=== PATIENT | female | born 1940 | race Caucasian/White ===

== ENCOUNTER 2022-03-09 13:01 | Inpatient (IN) ==
[2022-03-09] MEDS ORDERED: Iopamidol - 370 500 ML MLS IVP ONE ×2 (13:32→13:34)
[2022-03-09 14:03] LABS: Basophils % 0.1 %; Hematocrit 40.4 % (35.3-44.9); Hemoglobin 12.8 g/dL (11.5-15.4); Immature Granulocytes % 0.6 % (0-4); Lymphocytes # 0.4 K/mcL (0.6-4.6); Lymphocytes % 2.5 %; Mean Corpuscular HGB Conc 31.7 g/dL (31.6-35.5); Mean Corpuscular Volume 97.8 fL (83.0-100.0); Monocytes # 0.8 K/mcL (0.0-1.3); Monocytes % 4.7 %; Neutrophils # 15.4 K/mcL (1.6-8.9); Platelet Count 475 K/mcL (140-400); Red Blood Count 4.13 M/mcL (3.82-4.97); Red Cell Distribution Width 12.1 % (11.5-14.5); Segmented Neutrophils % 92.1 %; White Blood Count 16.7 K/mcL (4.3-11.1)
[2022-03-09 14:40] LABS: Albumin 4.2 g/dL (3.5-5.7); Bilirubin,Direct 0.1 mg/dL (0.0-0.2); Bilirubin,Indirect 0.3 mg/dL (0.0-1.0); Bilirubin,Total 0.4 mg/dL (0.3-1.0); Calcium 11.5 mg/dL (8.6-10.3); Globulin 4.3 g/dL (2.4-3.5); Magnesium 2.1 mg/dL (1.6-2.6); Potassium 6.5 mEq/L (3.5-5.1); Total Protein 8.5 g/dL (6.4-8.9); Troponin I 0.04 ng/mL (< 0.04)
[2022-03-09] MEDS ORDERED: 0.9 % Sodium Chloride 1,000 ML IVC SCH ×2 (15:00→17:45)
[2022-03-09 15:04] LABS: VBG HCO3 15 mEq/L (21-27); VBG PCO2 33 mmHg (41-51); VBG PH 7.27 pH Units (7.32-7.42); VBG PO2 77 mmHg (25-50)
[2022-03-09 17:18] LABS: Calcium 10.9 mg/dL (8.6-10.3); Potassium 5.2 mEq/L (3.5-5.1)
[2022-03-09] MEDS ORDERED: *HR* Dextrose 50 % in Water (Syg) 50 ML SYRINGE IVP PRN (17:44)
[2022-03-09] MEDS ORDERED: Insulin Regular, Human 100 UNIT/ML IV PRN (17:44)
[2022-03-09] MEDS ORDERED: Naloxone 0.4 MG/ML INJ IVP PRN (17:44)
[2022-03-09] MEDS ORDERED: D5% in 0.45% NACL 1,000 ML IVC PRN (17:44)
[2022-03-09 17:57] LABS: Calcium 11.4 mg/dL (8.6-10.3); Potassium 4.6 mEq/L (3.5-5.1)
[2022-03-09] MEDS: D5% in 0.45% NACL w KCl 20 MEQ/1,000 ML MLS IVC PRN (19:03)
[2022-03-09 19:44] LABS: Calcium 11.3 mg/dL (8.6-10.3); Potassium 4.6 mEq/L (3.5-5.1)
[2022-03-09 22:01] LABS: Calcium 11.7 mg/dL (8.6-10.3); Potassium 5.1 mEq/L (3.5-5.1)
[2022-03-09] MEDS: 0.45 % Sodium Chloride w/KCl 20 MEQ/1,000 ML MLS IVC SCH (22:15)
[2022-03-09] MEDS: *HR* Heparin 5,000 UNIT/ML VIAL SQ SCH (22:37)
[2022-03-10] MEDS: 0.45 % Sodium Chloride w/KCl 20 MEQ/1,000 ML MLS IVC SCH (00:45)
[2022-03-10 04:34] LABS: Bacteria,Urine Few per hpf (None-Few); Bilirubin,Urine Negative (Negative); Blood,Urine Negative (Negative); Clarity,Urine Turbid (Clear); Color,Urine Light-Yellow (Yellow); Glucose,Urine (UA) >=1000 mg/dL (Normal); Ketones,Urine 40 mg/dL (Negative); Leukocyte Esterase,Urine Large (Negative); Nitrite,Urine Negative (Negative); PH,Urine 5.5 pH Units (5.0-8.0); Protein,Urine Trace mg/dL (Neg-Trace); Specific Gravity,Urine 1.028 (1.010-1.025); Squamous Epithelial Cell,Urine Few per hpf (None-Few); Urobilinogen,Urine Normal (Normal); WBC,Urine 50-100 per hpf (0-3)
[2022-03-10] MEDS: *HR* Heparin 5,000 UNIT/ML VIAL SQ SCH ×3 (04:40→21:23)
[2022-03-10 05:43] LABS: Calcium 10.9 mg/dL (8.6-10.3)
[2022-03-10 05:44] LABS: Potassium 5.2 mEq/L (3.5-5.1)
[2022-03-10] MEDS: D5% in 0.45% NACL w KCl 20 MEQ/1,000 ML MLS IVC PRN (05:56)
[2022-03-10 06:18] LABS: Estimated Average Glucose 280 mg/dl; Hemoglobin A1C 11.4 %
[2022-03-10 12:43] LABS: Basophils % 0.1 %; Eosinophils % 0.1 %; Hematocrit 37.3 % (35.3-44.9); Hemoglobin 12.3 g/dL (11.5-15.4); Immature Granulocytes % 0.3 % (0-4); Lymphocytes # 1.6 K/mcL (0.6-4.6); Lymphocytes % 10.6 %; Mean Corpuscular Hemoglobin 30.3 pg (28.0-33.3); Mean Corpuscular Volume 91.9 fL (83.0-100.0); Mean Platelet Volume 10.3 fL (9.4-12.4); Monocytes # 1.4 K/mcL (0.0-1.3); Monocytes % 9.3 %; Neutrophils # 11.8 K/mcL (1.6-8.9); Platelet Count 455 K/mcL (140-400); Red Blood Count 4.06 M/mcL (3.82-4.97); Red Cell Distribution Width 12.1 % (11.5-14.5); Segmented Neutrophils % 79.6 %; White Blood Count 14.8 K/mcL (4.3-11.1)
[2022-03-10 13:14] LABS: Calcium 10.8 mg/dL (8.6-10.3); Potassium 4.8 mEq/L (3.5-5.1); Troponin I 0.05 ng/mL (< 0.04)
[2022-03-10] MEDS ORDERED: 0.9 % Sodium Chloride 1,000 ML IV ONE (15:26)
[2022-03-10] MEDS ORDERED: DULAGLUTIDE 3 MG/0.5 ML SUBQ SCH (16:00)
[2022-03-10] MEDS ORDERED: D5% in Water 1,000 ML IVC PRN (16:09)
[2022-03-10] MEDS ORDERED: *HR* Dextrose 50 % in Water (Syg) 50 ML SYRINGE IVP PRN (16:09)
[2022-03-10] MEDS ORDERED: Dextrose Gel 15 GM/37.5 ML TUBE PO PRN ×2 (16:09)
[2022-03-10] MEDS: Insulin LISPRO 300 UNITS/3 ML VIAL SUBQ SCH (17:00)
[2022-03-10] MEDS ORDERED: Insulin DETEMIR 100 UNIT/ML X5UNITS SUBQ SCH ×2 (18:19→21:00)
[2022-03-10] MEDS: *HR* Metformin 500 MG TABLET PO SCH (19:52)
[2022-03-10 22:00] LABS: Potassium 4.7 mEq/L (3.5-5.1); Troponin I 0.03 ng/mL (< 0.04)
[2022-03-11] MEDS ORDERED: 0.9 % Sodium Chloride 1,000 ML ONE (03:08)
[2022-03-11] MEDS: *HR* Heparin 5,000 UNIT/ML VIAL SQ SCH ×3 (06:11→21:50)
[2022-03-11] MEDS: Insulin LISPRO 300 UNITS/3 ML VIAL SUBQ SCH ×3 (08:48→17:15)
[2022-03-11 09:01] LABS: Basophils % 0.1 %; Eosinophils % 0.4 %; Hematocrit 37.8 % (35.3-44.9); Hemoglobin 12.4 g/dL (11.5-15.4); Immature Granulocytes % 0.2 % (0-4); Lymphocytes # 1.4 K/mcL (0.6-4.6); Lymphocytes % 16.9 %; Mean Corpuscular HGB Conc 32.8 g/dL (31.6-35.5); Mean Corpuscular Hemoglobin 30.8 pg (28.0-33.3); Mean Corpuscular Volume 93.8 fL (83.0-100.0); Mean Platelet Volume 10.6 fL (9.4-12.4); Monocytes # 0.8 K/mcL (0.0-1.3); Monocytes % 9.6 %; Neutrophils # 6.2 K/mcL (1.6-8.9); Platelet Count 404 K/mcL (140-400); Red Blood Count 4.03 M/mcL (3.82-4.97); Red Cell Distribution Width 12.3 % (11.5-14.5); Segmented Neutrophils % 72.8 %; White Blood Count 8.5 K/mcL (4.3-11.1)
[2022-03-11 09:23] LABS: Calcium 9.7 mg/dL (8.6-10.3); Magnesium 1.6 mg/dL (1.6-2.6); Potassium 4.5 mEq/L (3.5-5.1)
[2022-03-11] MEDS: *HR* Metformin 500 MG TABLET PO SCH ×2 (09:51→17:09)
[2022-03-11] MEDS: Dapagliflozin Propanediol [Farxiga] 10 MG Tablet PO SCH (09:52)
[2022-03-11] MEDS: Insulin DETEMIR 100 UNIT/ML X5UNITS SUBQ SCH ×2 (11:58→20:14)
[2022-03-11] MEDS: cefTRIAXone 1,000 MG in 0.9 % Sodium Chloride 10 ML IVP SCH (14:39)
[2022-03-11] MEDS ORDERED: 0.9 % Sodium Chloride 1,000 ML IVC ONE (16:45)
[2022-03-12 02:37] LABS: Hematocrit 35.3 % (35.3-44.9); Hemoglobin 11.4 g/dL (11.5-15.4); Mean Corpuscular HGB Conc 32.3 g/dL (31.6-35.5); Mean Corpuscular Hemoglobin 30.2 pg (28.0-33.3); Mean Corpuscular Volume 93.4 fL (83.0-100.0); Mean Platelet Volume 10.3 fL (9.4-12.4); Platelet Count 369 K/mcL (140-400); Red Blood Count 3.78 M/mcL (3.82-4.97); Red Cell Distribution Width 12.3 % (11.5-14.5); White Blood Count 7.6 K/mcL (4.3-11.1)
[2022-03-12 03:03] LABS: Magnesium 1.6 mg/dL (1.6-2.6)
[2022-03-12] MEDS: *HR* Heparin 5,000 UNIT/ML VIAL SQ SCH ×4 (05:54→22:44)
[2022-03-12] MEDS: cefTRIAXone 1,000 MG in 0.9 % Sodium Chloride 10 ML IVP SCH (09:14)
[2022-03-12] MEDS: *HR* Metformin 500 MG TABLET PO SCH ×2 (09:15→17:25)
[2022-03-12] MEDS: Dapagliflozin Propanediol [Farxiga] 10 MG Tablet PO SCH (09:15)
[2022-03-12] MEDS: Insulin DETEMIR 100 UNIT/ML X5UNITS SUBQ SCH ×2 (09:17→20:29)
[2022-03-12] MEDS: Insulin LISPRO 300 UNITS/3 ML VIAL SUBQ SCH ×3 (09:17→17:26)
[2022-03-12] MEDS: Acetaminophen 325 MG TABLET PO PRN (16:07)
[2022-03-13 03:10] LABS: Hematocrit 35.2 % (35.3-44.9); Hemoglobin 11.4 g/dL (11.5-15.4); Mean Corpuscular HGB Conc 32.4 g/dL (31.6-35.5); Mean Corpuscular Hemoglobin 30.2 pg (28.0-33.3); Mean Corpuscular Volume 93.1 fL (83.0-100.0); Mean Platelet Volume 10.4 fL (9.4-12.4); Platelet Count 346 K/mcL (140-400); Red Blood Count 3.78 M/mcL (3.82-4.97); Red Cell Distribution Width 12.3 % (11.5-14.5); White Blood Count 8.3 K/mcL (4.3-11.1)
[2022-03-13 03:29] LABS: Calcium 8.9 mg/dL (8.6-10.3); Potassium 3.7 mEq/L (3.5-5.1)
[2022-03-13] MEDS: *HR* Heparin 5,000 UNIT/ML VIAL SQ SCH ×3 (05:02→21:51)
[2022-03-13] MEDS: 0.45 % Sodium Chloride w/KCl 20 MEQ/1,000 ML MLS IVC SCH ×6 (07:54→07:59)
[2022-03-13] MEDS: *HR* Metformin 500 MG TABLET PO SCH ×2 (08:54→15:21)
[2022-03-13] MEDS: cefTRIAXone 1,000 MG in 0.9 % Sodium Chloride 10 ML IVP SCH (08:54)
[2022-03-13] MEDS: Insulin LISPRO 300 UNITS/3 ML VIAL SUBQ SCH ×3 (09:10→21:51)
[2022-03-13] MEDS: Dapagliflozin Propanediol [Farxiga] 10 MG Tablet PO SCH (09:20)
[2022-03-13] MEDS: Insulin DETEMIR 100 UNIT/ML X5UNITS SUBQ SCH ×2 (09:28→21:51)
[2022-03-14] MEDS: Acetaminophen 325 MG TABLET PO PRN (03:15)
[2022-03-14] MEDS: *HR* Heparin 5,000 UNIT/ML VIAL SQ SCH ×3 (04:50→21:29)
[2022-03-14] MEDS: *HR* Metformin 500 MG TABLET PO SCH ×2 (08:37→16:30)
[2022-03-14] MEDS: cefTRIAXone 1,000 MG in 0.9 % Sodium Chloride 10 ML IVP SCH (08:37)
[2022-03-14] MEDS: Insulin DETEMIR 100 UNIT/ML X5UNITS SUBQ SCH ×2 (08:38→20:09)
[2022-03-14] MEDS: Insulin LISPRO 300 UNITS/3 ML VIAL SUBQ SCH ×3 (08:39→16:27)
[2022-03-14] MEDS: Dapagliflozin Propanediol [Farxiga] 10 MG Tablet PO SCH (08:43)
[2022-03-14 10:46] LABS: Hemoglobin 11.5 g/dL (11.5-15.4); Mean Corpuscular HGB Conc 32.9 g/dL (31.6-35.5); Mean Corpuscular Hemoglobin 30.7 pg (28.0-33.3); Mean Corpuscular Volume 93.6 fL (83.0-100.0); Mean Platelet Volume 11.3 fL (9.4-12.4); Platelet Count 339 K/mcL (140-400); Red Blood Count 3.74 M/mcL (3.82-4.97); Red Cell Distribution Width 12.5 % (11.5-14.5)
[2022-03-14 11:07] LABS: Potassium 4.3 mEq/L (3.5-5.1)
[2022-03-14] MEDS ORDERED: Colchicine 0.6 MG TABLET PO ONE ×2 (11:33→12:40)
[2022-03-15 03:16] LABS: Hematocrit 33.9 % (35.3-44.9); Hemoglobin 11.1 g/dL (11.5-15.4); Mean Corpuscular HGB Conc 32.7 g/dL (31.6-35.5); Mean Corpuscular Hemoglobin 30.7 pg (28.0-33.3); Mean Corpuscular Volume 93.6 fL (83.0-100.0); Mean Platelet Volume 11.3 fL (9.4-12.4); Platelet Count 327 K/mcL (140-400); Red Blood Count 3.62 M/mcL (3.82-4.97); Red Cell Distribution Width 12.6 % (11.5-14.5); White Blood Count 10.9 K/mcL (4.3-11.1)
[2022-03-15 03:50] LABS: Calcium 8.9 mg/dL (8.6-10.3); Potassium 3.8 mEq/L (3.5-5.1)
[2022-03-15] MEDS: *HR* Heparin 5,000 UNIT/ML VIAL SQ SCH ×3 (05:09→21:05)
[2022-03-15] MEDS: Insulin DETEMIR 100 UNIT/ML X5UNITS SUBQ SCH ×2 (09:28→21:04)
[2022-03-15] MEDS: cefTRIAXone 1,000 MG in 0.9 % Sodium Chloride 10 ML IVP SCH (09:30)
[2022-03-15] MEDS: Insulin LISPRO 300 UNITS/3 ML VIAL SUBQ SCH ×3 (09:33→21:01)
[2022-03-15] MEDS: *HR* Metformin 500 MG TABLET PO SCH ×2 (09:34→21:01)
[2022-03-16 01:51] LABS: Hematocrit 32.9 % (35.3-44.9); Hemoglobin 10.5 g/dL (11.5-15.4); Mean Corpuscular HGB Conc 31.9 g/dL (31.6-35.5); Mean Corpuscular Hemoglobin 29.9 pg (28.0-33.3); Mean Corpuscular Volume 93.7 fL (83.0-100.0); Mean Platelet Volume 10.4 fL (9.4-12.4); Platelet Count 437 K/mcL (140-400); Red Blood Count 3.51 M/mcL (3.82-4.97); Red Cell Distribution Width 12.7 % (11.5-14.5); White Blood Count 8.6 K/mcL (4.3-11.1)
[2022-03-16 03:40] LABS: Calcium 8.8 mg/dL (8.6-10.3); Potassium 3.7 mEq/L (3.5-5.1)
[2022-03-16] MEDS: *HR* Heparin 5,000 UNIT/ML VIAL SQ SCH ×2 (05:34→11:20)
[2022-03-16] MEDS: *HR* Metformin 500 MG TABLET PO SCH (08:21)
[2022-03-16] MEDS: Insulin DETEMIR 100 UNIT/ML X5UNITS SUBQ SCH (08:25)
[2022-03-16] MEDS: cefTRIAXone 1,000 MG in 0.9 % Sodium Chloride 10 ML IVP SCH (08:25)
[2022-03-16] MEDS: Insulin LISPRO 300 UNITS/3 ML VIAL SUBQ SCH ×2 (08:28→11:26)
[2022-03-16 11:04] VITALS: BP 125/69; PULSE 91; TEMP 98; O2SAT 94
[2022-03-16 11:21] LABS: Influenza A PCR Negative (Negative); Influenza B PCR Negative (Negative); Resp. Syncytial Virus PCR Negative (Negative)
[2022-03-16 11:22] LABS: SARS-CoV-2 by PCR (In House) Negative (Negative)
[2022-03-17] MEDS ORDERED: Cefdinir 300 MG CAPSULE PO SCH (09:00)
== END 2022-03-16 13:41 | DRG 637 ==
LOC: EMEROOARM 13:01 → 2NNU 19:14 → 2NENU 03-12 22:21
PROVIDERS: ADMIT Hospitalist; ATTEND Hospitalist